=== PATIENT | female | born 1995 | race Caucasian/White ===

== ENCOUNTER 2024-01-23 20:04 | Emergency (ER) | payer OTHER ==
[~2024-01-23] VITALS: Ht 157.5 cm; Wt 74.4 kg
[2024-01-23] MEDS ORDERED: HYDROCODONE/APAP 5-325MG TABLET ONE (20:40)
[2024-01-23] MEDS: HYDROCODONE/APAP 5-325MG TABLET PO ONE (20:41)
[2024-01-23] MEDS ORDERED: HYDR-4209 PO (20:52)
[2024-01-23 21:03] VITALS: BP 138/78; TEMP 98.2; O2SAT 99
== END 2024-01-23 21:03 | disposition home or self-care (01) ==
LOC: ER 20:20
DX: S93.491A Sprain of other ligament of right ankle, initial encounter (principal); Z88.8 Allergy status to other drugs, medicaments and biological substances; W10.8XXA Fall (on) (from) other stairs and steps, initial encounter; Y93.89 Activity, other specified; Y92.89 Other specified places as the place of occurrence of the external cause; Y99.8 Other external cause status
CPT/HCPCS: 73610; A4606; A4663